=== PATIENT | female | born 1985 | race Asian ===

== ENCOUNTER 2016-10-24 00:30 | Inpatient (IN) | payer SELFPAY ==
[~2016-10-24] VITALS: Ht 173 cm; Wt 90.7 kg
[2016-10-24] MEDS ORDERED: PREN1SGL25 PO (00:41)
[2016-10-24] MEDS ORDERED: NALBUPHINE HYDROCHLORIDE 10 MG/ML VIAL IVP PRN (00:45)
[2016-10-24] MEDS ORDERED: OXYTOCIN 10 UNITS/ML VIAL IM SCH (00:45)
[2016-10-24] MEDS ORDERED: CARBOPROST 250 MCG/ML AMP IM PRN (00:45)
[2016-10-24] MEDS ORDERED: PROMETHAZINE 25 MG/ML VIAL IVP PRN (00:45)
[2016-10-24] MEDS ORDERED: METHYLERGONOVINE 0.2 MG/ML AMP IM PRN ×2 (00:45→12:25)
[2016-10-24] MEDS ORDERED: MISOPROSTOL 25 MCG TAB VG PRN ×2 (01:00→01:20)
[2016-10-24 01:12] LABS: BASOPHILS % (AUTO) 0.4 % (0.0-2.0); EOSINOPHILS # (AUTO) 0.1 K/uL (0-0.4); EOSINOPHILS % (AUTO) 1.5 % (0.0-4.0); HEMATOCRIT 37.8 % (36-48); HEMOGLOBIN 12.3 g/dL (12.0-16.0); LYMPHOCYTES # (AUTO) 1.8 K/uL (2.5-16.5); LYMPHOCYTES % (AUTO) 23.2 % (20.5-51.1); MEAN CORPUSCULAR HEMOGLOBIN 31 pg (27-31); MEAN CORPUSCULAR HGB CONC 33 g/dL (33-37); MEAN CORPUSCULAR VOLUME 93 fL (80-94); MONOCYTES # (AUTO) 0.8 K/uL (0.8-1.0); MONOCYTES % (AUTO) 11.1 % (1.7-9.3); NEUTROPHILS # (AUTO) 4.9 K/uL (1.8-7.7); NEUTROPHILS % (AUTO) 63.8 % (42.2-75.2); PLATELET COUNT (AUTO) 141 K/uL (140-450); RED BLOOD CELL COUNT(AUTO) 4.05 MIL/uL (4.20-5.40); RED CELL DISTRIBUTION WIDTH 12.5 % (11.6-13.7); WHITE BLOOD COUNT (AUTO) 7.6 K/uL (4.8-10.8)
[2016-10-24 01:14] LABS: APPEARANCE,URINE CLOUDY (CLEAR); BILIRUBIN,URINE NEGATIVE (NEGATIVE); BLOOD, URINE TRACE-L (NEGATIVE); COLOR,URINE YELLOW (YELLOW); LEUKOCYTE ESTERASE ,URINE NEGATIVE (NEGATIVE); NITRITE, URINE NEGATIVE (NEGATIVE); PROTEIN,URINE NEGATIVE (NEGATIVE); UGLUCOSE NEGATIVE (NEGATIVE); UROBILINOGEN,URINE 0.2 EU/dL (0.2 - 1)
[2016-10-24 01:25] LABS: BACTERIA,URINE OCCASSIONAL /HPF (None Seen); COARSE GRANULAR CASTS,URINE 0-10 /LPF (None Seen); RBC,URINE 0-5 (RARE) /HPF (0-5); SQUAMOUS EPITHELIAL CELL,UR 0-3 (FEW) /LPF (0-3 (FEW)); URINE AMORPHOUS URATE 2+ /HPF (None Seen); WBC,URINE 0-5 (RARE) /HPF (0-5)
[2016-10-24] MEDS: LACTATED RINGERS 1,000 ML IV SCH ×3 (01:37→07:00)
[2016-10-24] MEDS ORDERED: OXYTOCIN 20 UNITS/LR PREMIX 1,000 ML IV ONE (01:55)
[2016-10-24 02:17] VITALS: BP 128/60
[2016-10-24] MEDS ORDERED: ROPIVACAINE 0.2%/NS PREMIX 250 ML EPI ONE (05:47)
[2016-10-24] MEDS ORDERED: OXYTOCIN 20 UNITS/LR PREMIX 1,000 ML IV SCH (06:00)
[2016-10-24] MEDS ORDERED: OXYTOCIN 10 UNITS/ML VIAL ONE (09:15)
--- NOTE | 2016-10-24 10:00 | NUR ---
PATIENT HAS BEEN SCREENED AND CATEGORIZED LOW NUTRITION RISK. PATIENT WILL BE SEEN WITHIN 7 DAYS OF ADMISSION. 10/30/[address]
[2016-10-24] MEDS ORDERED: BENZOCAINE/MENTHOL 20%-0.5% 60 GM CAN TP PRN (12:25)
[2016-10-24] MEDS ORDERED: WITCH HAZEL 40 PAD PACKAGE TP PRN (12:25)
[2016-10-24] MEDS ORDERED: oxyCODONE/APAP 5/325 MG 1 TAB TAB PO PRN (12:25)
[2016-10-24] MEDS ORDERED: TEMAZEPAM 15 MG CAP PO PRN (12:25)
[2016-10-24] MEDS ORDERED: HYDROcodone/APAP 5/325 MG 1 TAB TAB PO PRN (12:25)
[2016-10-24] MEDS ORDERED: IBUPROFEN 800 MG TAB PO PRN (12:25)
[2016-10-24] MEDS ORDERED: MEASLES, MUMPS, AND RUBELLA 1 VIAL SQVAC PRN (12:25)
[2016-10-24] MEDS ORDERED: SODIUM PHOSPHATE 118 ML ENEM RC PRN (12:25)
[2016-10-24] MEDS ORDERED: DOCUSATE SOD/SENNA 50/8.6 MG 1 TAB PO SCH (21:00)
[2016-10-25 06:03] LABS: HEMOGLOBIN 11.1 g/dL (12.0-16.0)
== END 2016-10-25 14:45 | disposition home or self-care (01) | DRG 775 ==
LOC: MLD 00:30 → MFCC 17:37
PROVIDERS: ADMIT Obstetrics & Gynecology; ATTEND Obstetrics & Gynecology
PROC: 10E0XZZ Delivery of Products of Conception, External Approach (ICD-10-PCS; principal; 2016-10-24)
PROC: 0HQ9XZZ Repair Perineum Skin, External Approach (ICD-10-PCS; 2016-10-24)
PROC: 00HU33Z Insertion of Infusion Device into Spinal Canal, Percutaneous Approach (ICD-10-PCS; 2016-10-24)
PROC: 3E0R3CZ (ICD-10-PCS; 2016-10-24)
DX: O70.0 First degree perineal laceration during delivery (principal); Z3A.39 39 weeks gestation of pregnancy; Z37.0 Single live birth; Z28.21 Immunization not carried out because of patient refusal
CPT/HCPCS: 36415; 51702; 59409; 81001; 85018; 85025; 86592; 86886; 86900; 86901; J2590; J2795; J7120